=== PATIENT | male | born 1955 | race Caucasian/White ===

== ENCOUNTER 2017-12-12 16:21 | Emergency (ER) | payer OTHER ==
[2017-12-12] MEDS ORDERED: ONDANSETRON HCL INJ/PF 4 MG/2 ML SDV IV ONE (16:32)
[2017-12-12] MEDS ORDERED: NORMAL SALINE 1000 ML 1,000 ML IV ONE (16:32)
[2017-12-12] MEDS ORDERED: ONDANSETRON 4 MG TAB.RAPDIS ONE (16:58)
[2017-12-12] MEDS ORDERED: ONDANSETRON 4 MG TAB.RAPDIS PO ONE (17:00)
--- NOTE | 2017-12-12 17:05 | ER Document Report ---
ED Medical Screen (RME) - General Chief Complaint: Diarrhea Stated Complaint: WEAKNESS Time Seen by Provider: 12/12/17 16:54 Information source: Patient Notes: 62 y.o male with a PMHx of pancreatic cancer presents to the ED with diarrhea, weakness and intermittent dry heaves. Pt reports his last chemo treatment was December 02 and is scheduled for next treatment on December 16. Pt's oncologist told him to come in for fluids. He denies any dysuria, cough, congestion, fever or recent illnesses. I have greeted and performed a rapid initial assessment of the patient. A comprehensive ED assessment and evaluation of the patient, analysis of test results, and completion of the medical decision making process will be conducted by additional ED providers. TRAVEL OUTSIDE OF THE [place] IN LAST 30 DAYS: No - Related Data Allergies/Adverse Reactions: No Known Allergies Allergy (Verified 12/12/17 16:48) Past Medical History - General Information source: Patient - Social History Chew tobacco use (# tins/day): No Frequency of alcohol use: None Drug Abuse: None Renal/ Medical History: Denies: Hx Peritoneal Dialysis Review of Systems - Review of Systems Constitutional: See HPI, Weakness. denies: Fever EENT: See HPI. denies: Nose congestion Cardiovascular: No symptoms reported Respiratory: See HPI. denies: Cough Gastrointestinal: See HPI, Diarrhea, Other - dry heaving Genitourinary: denies: Dysuria Male Genitourinary: No symptoms reported Musculoskeletal: No symptoms reported Skin: No symptoms reported Hematologic/Lymphatic: No symptoms reported Neurological/Psychological: No symptoms reported -: Yes All other systems reviewed and negative Physical Exam - Vital signs Vitals: Temp Pulse Resp BP Pulse Ox 99.4 F 100 22 H 135/93 H 96 12/12/17 16:37 12/12/17 16:37 12/12/17 16:37 12/12/17 16:37 12/12/17 16:37 - Notes Notes: Physical Exam: General: Alert, appears well. HEENT: Normocephalic. Atraumatic. PERRLA. Extraocular movements intact. Oropharynx clear. Neck: Supple. Respiratory: No respiratory distress. Abdominal: Normal Inspection. No distension. Extremities: Moves all four extremities. Neurological: Normal cognition. AAOx4. Normal speech. Psychological: Normal affect. Normal Mood. Skin: Warm. Dry. Normal color. Course - Vital Signs Vital signs: Temp Pulse Resp BP Pulse Ox 99.4 F 100 22 H 135/93 H 96 12/12/17 16:37 12/12/17 16:37 12/12/17 16:37 12/12/17 16:37 12/12/17 16:37 Scribe Documentation - Scribe Written by Venessa:: Venessa Camilo 12/12/17 [id number] acting as scribe for :: Douglas
[2017-12-12] MEDS ORDERED: CHLORPROMAZINE HCL 25 MG TABLET PO ONE (17:27)
[2017-12-12] MEDS ORDERED: ACETAMINOPHEN 325 MG TABLET PO ONE (17:40)
--- NOTE | 2017-12-12 17:41 | ER Document Report ---
ED General - General Chief Complaint: Diarrhea Stated Complaint: WEAKNESS Time Seen by Provider: 12/12/17 16:54 Mode of Arrival: Ambulatory Information source: Patient, Relative Notes: 62-year-old male with a history of pancreatic cancer presents via private vehicle with complaint of nausea, vomiting, weakness. Patient is currently undergoing chemotherapy with his last treatment on December 02. He is here from out of town visiting friends and began experiencing nausea and vomiting yesterday.Patient called his oncologist in [place] who recommends being seen in the emergency department for IV fluids, Zofran and Thorazine. Patient denies any fever, chills, chest pain, abdominal pain, diarrhea, dysuria. He has been drinking fluids but states he has had a poor appetite. TRAVEL OUTSIDE OF THE [place] IN LAST 30 DAYS: No - HPI Onset: Yesterday Onset/Duration: Gradual Quality of pain: No pain Severity: None Associated symptoms: Nausea, Vomiting. denies: Fever Exacerbated by: Denies Relieved by: Denies Similar symptoms previously: Yes Recently seen / treated by doctor: Yes - Last chemotherapy December 02/2018 - Related Data Allergies/Adverse Reactions: No Known Allergies Allergy (Verified 12/12/17 16:48) Past Medical History - General Information source: Patient - Social History Smoking Status: Former Smoker Chew tobacco use (# tins/day): No Frequency of alcohol use: None Drug Abuse: None Lives with: Family Family History: Reviewed & Not Pertinent Patient has suicidal ideation: No Patient has homicidal ideation: No - Past Medical History Cardiac Medical History: Reports: None Pulmonary Medical History: Reports: Hx COPD Renal/ Medical History: Denies: Hx Peritoneal Dialysis Malignancy Medical History: Reports Hx Pancreatic Cancer Past Surgical History: Reports: Hx Cholecystectomy, Hx Inguinal Hernia Review of Systems - Review of Systems Constitutional: See HPI, Weakness. denies: Fever EENT: No symptoms reported Cardiovascular: denies: Chest pain Respiratory: denies: Short of breath Gastrointestinal: Nausea, Vomiting. denies: Abdominal pain, Diarrhea Genitourinary: denies: Dysuria, Retention Neurological/Psychological: Other - Hiccups Physical Exam - Vital signs Vitals: Temp Pulse Resp BP Pulse Ox 99.4 F 100 22 H 135/93 H 96 12/12/17 16:37 12/12/17 16:37 12/12/17 16:37 12/12/17 16:37 12/12/17 16:37 Interpretation: Normal, Tachycardic, Tachypneic, Febrile - General General appearance: Appears well, Alert In distress: None - HEENT Head: Normocephalic, Atraumatic Eyes: Normal Conjunctiva: Icteric Extraocular movements intact: Yes Pupils: PERRL Mucous membranes: Dry Neck: Normal - Respiratory Respiratory status: No respiratory distress Chest status: Nontender Breath sounds: Normal Chest palpation: Normal - Abdominal Inspection: Normal Distension: No distension Bowel sounds: Normal Tenderness: Tender - Diffuse mild tenderness. No: McBurney's point, Martinez's sign Organomegaly: No organomegaly - Back Back: Normal, Nontender Course - Re-evaluation Re-evalutation: 12/12/17 19:50 Patient's oncologist called at [phone]. unable to reach 12/12/17 19:57 Message left for on-call oncologist. Awaiting return call. 12/12/17 20:20 Spoke to the patient's covering oncologist who is familiar with the patient. He states his current chemo regimen is known for prolonged neutropenia. He recommends discharge home with Cipro. 12/12/17 20:24 On reevaluation patient is resting comfortably. Nausea has subsided. I did inform him and his son of the oncology recommendations of home-going antibiotics. Patient and son are comfortable with discharge home. Patient has been able to tolerate fluids prior to discharge. Son states that he does have antinausea medication at home. 12/12/17 22:19 62-year-old male with a history of pancreatic cancer currently undergoing chemotherapy presents via private vehicle with complaint of nausea and weakness. Patient is from out of town and visiting friends. His last chemotherapy treatment was on December 02, 2017. Upon arrival vitals were reviewed. Patient does not appear toxic or dehydrated. He is in no acute distress. I did speak to the physician covering his oncologist who is familiar with the patient. He states that the patient's current chemotherapy regimen is known for prolonged neutropenia. He recommends blood cultures and discharged home with Cipro. Patient has an upcoming appointment with oncology on December 16. On reevaluation patient states nausea has improved. The patient and son are requesting discharge home. Laboratory 12/12/17 12/12/17 17:30 17:30 WBC 1.5 L* RBC 4.73 Hgb 13.4 L Hct 38.3 MCV 81 MCH 28.3 MCHC 34.9 RDW 13.2 Plt Count 102 L Total Counted 50 Seg Neutrophils % Not Reportable Seg Neuts % (Manual) 6 L Lymphocytes % Not Reportable Lymphocytes % (Manual) 62 H Atypical Lymphs % 14 Monocytes % Not Reportable Monocytes % (Manual) 16 H Eosinophils % Not Reportable Eosinophils % (Manual) 2 Basophils % Not Reportable Basophils % (Manual) 0 Absolute Neutrophils Not Reportable Abs Neuts (Manual) 0.1 L Absolute Lymphocytes Not Reportable Abs Lymphs (Manual) 1.1 Absolute Monocytes Not Reportable Abs Monocytes (Manual) 0.2 Absolute Eosinophils Not Reportable Absolute Eos (Manual) 0.0 Absolute Basophils Not Reportable Abs Basophils (Manual) 0.0 Platelet Comment DECREASED RBC Morph Comment NORMO-CYTIC/CHROMIC Sodium 127.8 L Potassium 3.2 L Chloride 95 L Carbon Dioxide 23 Anion Gap 10 BUN 12 Creatinine 0.78 Est GFR ( Amer) > 60 Est GFR (Non-Af Amer) > 60 Glucose 103 Calcium 8.6 Total Bilirubin 1.0 Direct Bilirubin 0.5 H Neonat Total Bilirubin Not Reportable Neonat Direct Bilirubin Not Reportable Neonat Indirect Bili Not Reportable AST 19 ALT 50 Alkaline Phosphatase 89 Total Protein 5.7 L Albumin 3.1 L - Vital Signs Vital signs: Temp Pulse Resp BP Pulse Ox 99.4 F 100 22 H 135/93 H 96 12/12/17 16:37 12/12/17 16:37 12/12/17 16:37 12/12/17 16:37 12/12/17 16:37 - Laboratory Result Diagrams: 12/12/17 17:30 12/12/17 17:30 Laboratory results interpreted by me: 12/12/17 12/12/17 17:30 17:30 WBC 1.5 L* Hgb 13.4 L Plt Count 102 L Seg Neuts % (Manual) 6 L Lymphocytes % (Manual) 62 H Monocytes % (Manual) 16 H Abs Neuts (Manual) 0.1 L Sodium 127.8 L Potassium 3.2 L Chloride 95 L Direct Bilirubin 0.5 H Total Protein 5.7 L Albumin 3.1 L Discharge - Discharge Clinical Impression: Nausea & vomiting, Weakness, Pancreatic cancer, Neutropenia, Leukopenia Disposition: HOME, SELF-CARE Instructions: Antinausea Medication ([facility]), Vomiting ([facility]), Weakness ([facility]) Prescriptions: Ciprofloxacin HCl [Cipro 500 mg Tablet] 500 mg PO BID #20 tablet
[2017-12-12 17:51] LABS: HEMATOCRIT 38.3 % (37.9-51.0); HEMOGLOBIN 13.4 g/dL (13.5-17.0); MEAN CORPUSCULAR HEMOGLOBIN 28.3 pg (27.0-33.4); MEAN CORPUSCULAR HGB CONC 34.9 g/dL (32.0-36.0); MEAN CORPUSCULAR VOLUME 81 fl (80-97); PLATELET COUNT 102 10^3/uL (150-450); RED BLOOD COUNT 4.73 10^6/uL (4.35-5.55); RED CELL DISTRIBUTION WIDTH 13.2 % (11.5-14.0)
[2017-12-12 18:11] LABS: ABSOLUTE LYMPHOCYTES# (MANUAL) 1.1 10^3/uL (0.5-4.7); ABSOLUTE MONOCYTES # (MANUAL) 0.2 10^3/uL (0.1-1.4); ABSOLUTE NEUTROPHILS# (MANUAL) 0.1 10^3/uL (1.7-8.2); BASOPHILS % (MANUAL) 0 % (0-2); EOSINOPHILS % (MANUAL) 2 % (0-6); LYMPHOCYTES % (MANUAL) 62 % (13-45); MONOCYTES % (MANUAL) 16 % (3-13); SEGMENTED NEUTROPHILS % (MAN) 6 % (42-78); TOTAL CELLS COUNTED 50
[2017-12-12 18:13] LABS: PLATELET COMMENT DECREASED; RBC MORPHOLOGY COMMENT NORMO-CYTIC/CHROMIC
[2017-12-12 18:16] LABS: WHITE BLOOD COUNT 1.5 10^3/uL (4.0-10.5)
[2017-12-12 18:17] LABS: ALANINE AMINOTRANSFERASE 50 U/L (21-72); ALBUMIN 3.1 g/dL (3.5-5.0); ALKALINE PHOSPHATASE 89 U/L (38-126); ANION GAP 10 (5-19); ASPARTATE AMINO TRANSFERASE 19 U/L (17-59); BILIRUBIN,DIRECT 0.5 mg/dL (0.0-0.4); BLOOD UREA NITROGEN 12 mg/dL (7-20); CALCIUM 8.6 mg/dL (8.4-10.2); CARBON DIOXIDE 23 mmol/L (22-30); CHLORIDE 95 mmol/L (98-107); GLUCOSE 103 mg/dL (75-110); POTASSIUM 3.2 mmol/L (3.6-5.0); SODIUM 127.8 mmol/L (137-145); TOTAL PROTEIN 5.7 g/dL (6.3-8.2)
[2017-12-12] MEDS ORDERED: POTASSIUM CHLORIDE 20 MEQ/15 ML UDCUP PO ONE (18:55)
[2017-12-12] MEDS ORDERED: RINGERS SOLUTION,LACTATED 1,000 ML IV ONE ×2 (19:52)
[2017-12-12] MEDS ORDERED: CIPROFLOXACIN HCL 500 MG TABLET PO ONE (20:15)
[2017-12-12] MEDS ORDERED: HEPARIN SOD (PORCINE) 1 UNIT/ML PF 3 ML SYRINGE IV ONE (21:09)
[2017-12-12 22:22] VITALS: BP 150/78
[2017-12-14 14:01] LABS: PATH REVIEW PATHOLOGIST REVIEWED
== END 2017-12-12 22:23 | disposition home or self-care (01) ==
LOC: ER 16:21
DX: D70.9 Neutropenia, unspecified (principal); C25.9 Malignant neoplasm of pancreas, unspecified; R19.7 Diarrhea, unspecified; R11.2 Nausea with vomiting, unspecified; R53.1 Weakness; J44.9 Chronic obstructive pulmonary disease, unspecified; Z79.899 Other long term (current) drug therapy; Z90.49 Acquired absence of other specified parts of digestive tract; Z87.891 Personal history of nicotine dependence
CPT/HCPCS: 36591; 99284; 96360; 36415; 87040; 85025; 80053; J3490; S0119; J7030